=== PATIENT | female | born 1990 | race Caucasian/White ===

== ENCOUNTER → 2021-06-20 | Day surgery (SDC) | payer OTHER ==
[~2021-06-20] MED LIST: KLONOPIN2 MG PO; PROAIR HFA8.5 GM INH; ZOFRAN 4 MG TAB4 MG PO
== END | disposition home or self-care (01) ==
LOC: OR 08:09
DX: K31.9 Disease of stomach and duodenum, unspecified (principal); K26.9 Duodenal ulcer, unspecified as acute or chronic, without hemorrhage or perforation; K59.09 Other constipation; K66.0 Peritoneal adhesions (postprocedural) (postinfection); F41.9 Anxiety disorder, unspecified; Z79.899 Other long term (current) drug therapy; Z20.822 Contact with and (suspected) exposure to COVID-19
CPT/HCPCS: 84703; J2405; J2704; J7040